=== PATIENT | male | born 1985 | race Caucasian/White ===

== ENCOUNTER 2020-07-11 12:34 | Emergency (ER) | payer SELFPAY ==
[~2020-07-11] VITALS: Ht 185.4 cm; Wt 70.3 kg
== END 2020-07-11 14:57 | disposition home or self-care (01) ==
LOC: ED 12:34
DX: S66.912A Strain of unspecified muscle, fascia and tendon at wrist and hand level, left hand, initial encounter (principal); Z88.6 Allergy status to analgesic agent; W00.2XXA Other fall from one level to another due to ice and snow, initial encounter; Y93.89 Activity, other specified; Y92.89 Other specified places as the place of occurrence of the external cause; Y99.8 Other external cause status